=== PATIENT | male | born 1995 | race Caucasian/White ===

== ENCOUNTER 2023-01-30 18:18 | Inpatient (IN) | payer OTHER ==
[~2023-01-30] VITALS: Ht 170.2 cm; Wt 77.2 kg
[2023-01-30 21:06] LABS: BASOPHILS % (AUTO) 0.8 % (0.0-2.0); EOSINOPHILS % (AUTO) 2.4 % (1.0-6.0); HEMATOCRIT 44.7 % (41-53); HEMOGLOBIN 14.4 g/dL (13.5-17.5); LYMPHOCYTES # (AUTO) 2.2 K/uL (1.0-4.8); LYMPHOCYTES % (AUTO) 19.6 % (22.0-44.0); MEAN CORPUSCULAR HEMOGLOBIN 28.6 pg (26.0-34.0); MEAN CORPUSCULAR HGB CONC 32.3 G/dL (31.0-37.0); MEAN CORPUSCULAR VOLUME 89 fL (80-100); MONOCYTES # (AUTO) 0.7 K/uL (0.1-1.0); MONOCYTES % (AUTO) 6.7 % (2.0-9.0); NEUTROPHILS # (AUTO) 7.8 K/uL (1.8-7.7); NEUTROPHILS % (AUTO) 70.5 % (40.0-70.0); PLATELET COUNT (AUTO) 370 K/uL (150-450); RED BLOOD CELL COUNT(AUTO) 5.04 MIL/uL (4.50-5.90); RED CELL DISTRIBUTION WIDTH 14.7 % (11.5-14.5)
[2023-01-30 21:12] LABS: ANION GAP 7 mmol/L (8-16); CALCIUM, TOTAL 10.2 mg/dL (8.8-10.5); CARBON DIOXIDE 30 mmol/L (22-29); CHLORIDE 100 mmol/L (98-107); GLOMERULAR FILTR. RATE CALC > 60 mL/min (>60); GLUCOSE,RANDOM 97 mg/dL (70-110); POTASSIUM 3.9 mmol/L (3.5-5.1); SODIUM SERUM 137 mmol/L (136-145)
[2023-01-30 21:18] LABS: ALANINE AMINOTRANSFERASE 94 U/L (12-78); ALBUMIN 4.3 g/dL (3.4-5.0); ALKALINE PHOSPHATASE 118 U/L (46-116); ASPARTATE AMINOTRANSFERASE 44 U/L (15-37); BILIRUBIN,TOTAL 0.4 mg/dL (0.1-1.0); TOTAL PROTEIN, SERUM 8.6 g/dL (6.4-8.2)
[2023-01-30] MEDS ORDERED: 1: MAGNESIUM SULFATE 2 GM, MVI, ADULT NO.1 WITH VIT K 10 ML, THIAMINE 100 MG, FOLIC ACID IV SCH ×5 (23:30)
[2023-01-30] MEDS ORDERED: LOPERAMIDE HCL 2 MG/15 ML SUSPENSION UDCUP PO PRN (23:30)
[2023-01-30] MEDS ORDERED: ONDANSETRON HCL 4 MG/2 ML VIAL IVP PRN (23:30)
[2023-01-30] MEDS ORDERED: MAGNESIUM HYDROXIDE SUSPENSION 30 ML UDCUP PO PRN (23:30)
[2023-01-30] MEDS ORDERED: BISACODYL 10 MG RECTAL RECTAL SUPPOSITORY PR PRN (23:30)
[2023-01-30] MEDS ORDERED: LORazepam 1 MG TABLET PO PRN (23:30)
[2023-01-30] MEDS ORDERED: IBUPROFEN 600 MG TABLET PO PRN (23:30)
[2023-01-30] MEDS ORDERED: IPRATROPIUM BROMIDE 0.5 MG/2.5 ML NEB SOLUTION NEB PRN (23:30)
[2023-01-30] MEDS ORDERED: DICYCLOMINE HCL 10 MG CAPSULE PO PRN (23:30)
[2023-01-30] MEDS ORDERED: CloNIDine HCL 0.1 MG TABLET PO PRN (23:30)
[2023-01-30] MEDS ORDERED: HydrOXYzine PAMOATE 50 MG CAPSULE PO PRN (23:30)
[2023-01-30] MEDS ORDERED: TraZODone HCL 50 MG TABLET PO PRN (23:30)
[2023-01-30] MEDS ORDERED: ALBUTEROL SULFATE 2.5 MG/0.5 ML NEB SOLUTION NEB PRN (23:30)
[2023-01-30] MEDS ORDERED: ACETAMINOPHEN 325 MG TABLET PO PRN ×2 (23:30)
[2023-01-30] MEDS ORDERED: BACLOFEN 10 MG TABLET PO PRN (23:30)
[2023-01-30] MEDS ORDERED: SODIUM CHLORIDE 0.45% 1,000 ML IV SCH (23:30)
[2023-01-30] MEDS ORDERED: MAG HYDROX/AL HYDROX/SIMETH ES 30 ML SUSPENSION UDCUP PO PRN (23:30)
[2023-01-30] MEDS ORDERED: LORazepam 2 MG/ML VIAL IVP PRN (23:30)
[2023-01-30] MEDS ORDERED: ZOLPIDEM TARTRATE 5 MG TABLET PO PRN (23:30)
[2023-01-30] MEDS ORDERED: PROMETHAZINE HCL 25 MG TABLET PO PRN (23:30)
[2023-01-30 23:40] VITALS: BP 135/84
[2023-01-31 00:34] LABS: AMPHET/METH SCREEN,URINE POSITIVE (NEGATIVE); BARBITURATE SCREEN, URINE NEGATIVE (NEGATIVE); BENZODIAZEPINES SCREEN,URINE NEGATIVE (NEGATIVE); CANNABINOID SCREEN,URINE NEGATIVE (NEGATIVE); COCAINE SCREEN,URINE NEGATIVE (NEGATIVE); METHADONE SCREEN, URINE NEGATIVE (NEGATIVE); OPIATE SCREEN,URINE NEGATIVE (NEGATIVE); PHENCYCLIDINE SCREEN,URINE NEGATIVE (NEGATIVE)
[2023-01-31] MEDS: HEPARIN SODIUM,PORCINE 5,000 UNITS/ML VIAL SQ SCH ×3 (00:43→16:17)
[2023-01-31 04:41] VITALS: BP 121/63
[2023-01-31 07:27] VITALS: BP 111/77
[2023-01-31] MEDS: PANTOPRAZOLE SODIUM 40 MG DR TABLET PO SCH (09:20)
[2023-01-31 15:03] VITALS: BP 108/69
[2023-01-31 19:03] VITALS: BP 103/61
[2023-02-01 04:28] VITALS: BP 101/62
[2023-02-01 07:10] VITALS: BP 100/65
[2023-02-01] MEDS: PANTOPRAZOLE SODIUM 40 MG DR TABLET PO SCH (08:01)
[2023-02-01] MEDS: HEPARIN SODIUM,PORCINE 5,000 UNITS/ML VIAL SQ SCH ×2 (08:01)
== END 2023-02-01 11:30 | DRG 897 ==
LOC: EMS 18:20 → 6S 21:38
PROVIDERS: ADMIT Hospitalist; ATTEND Hospitalist
DX: F15.10 Other stimulant abuse, uncomplicated (principal); F10.10 Alcohol abuse, uncomplicated
CPT/HCPCS: 80053; 80307; 85025; 93005; 99285; G0480; J1644; J3411; J3475; J3490; J7030